=== PATIENT | female | born 1960 | race Caucasian/White ===

== ENCOUNTER → 2024-01-14 13:14 | Outpatient (REF) | payer OTHER, SELFPAY | LOC: HWWDC 13:14 | PROVIDERS: ATTENDING PHYSICIAN Physician Assistant | DX: Z12.31 Encounter for screening mammogram for malignant neoplasm of breast (principal) | CPT/HCPCS: 77063; 77067 ==

== ENCOUNTER → 2024-08-22 15:58 | Outpatient (REF) | payer OTHER, SELFPAY | LOC: RAD 15:58 | PROVIDERS: ATTENDING PHYSICIAN Physician Assistant | DX: M54.2 Cervicalgia (principal) | CPT/HCPCS: 72040 ==

== ENCOUNTER → 2025-01-17 07:14 | Outpatient (REF) | payer OTHER, SELFPAY | LOC: HWWDC 07:14 | PROVIDERS: ATTENDING PHYSICIAN Obstetrics & Gynecology Gynecology; FAMILY PHYSICIAN Physician Assistant | DX: Z12.31 Encounter for screening mammogram for malignant neoplasm of breast (principal) | CPT/HCPCS: 77063; 77067 ==